=== PATIENT | male | born 1960 | race Caucasian/White ===

== ENCOUNTER 2017-11-20 19:36 | Inpatient (IN) | payer BC, SELFPAY ==
[2017-11-20 19:38] VITALS: BP 133/95; PULSE 114; RESP 18; TEMP 36.2; O2SAT 95; BMI 32.4
--- NOTE | 2017-11-20 20:03 | US_ITS ---
STUDY: VENOUS DOPPLER ULTRASOUND - BILATERAL LOWER EXTREMITIES REASON FOR EXAM: Male, 57 years old. Left-sided posterior leg pain for 10 days TECHNIQUE: Ultrasound evaluation of the deep vein system to include ghosh-scale imaging and compression was performed. Ghosh-scale imaging and Doppler sonographic evaluation, including duplex spectral analysis and qualitative color flow sonography, was performed. COMPARISON: None. FINDINGS: RIGHT LEG Common Femoral Vein: Normal compression, spontaneity and augmentation. Normal color Doppler. Common Femoral Vein/Greater Saphenous Junction: Normal compression, spontaneity and augmentation. Normal color Doppler. Deep Femoral Vein: Normal compression, spontaneity and augmentation. Normal color Doppler. Femoral Proximal: Normal compression, spontaneity and augmentation. Normal color Doppler. Femoral Middle: Normal compression, spontaneity and augmentation. Normal color Doppler. Femoral Distal: Normal compression, spontaneity and augmentation. Normal color Doppler. Popliteal Vein: Normal compression, spontaneity and augmentation. Normal color Doppler. Posterior Tibial Vein: Normal compression, spontaneity and augmentation. Normal color Doppler. Peroneal Vein: Normal compression, spontaneity and augmentation. Normal color Doppler. LEFT LEG Deep venous thrombosis in the left lower extremity noted extending from proximal femoral vein to distal peroneal vein. US/Venous Duplex Imag/True Extrem IMPRESSION: Deep venous thrombosis in the left lower extremity extending from proximal femoral vein to distal peroneal vein. Electronically Signed: Yasir Carter, at 21:16 EDT Tel , Service support ,
[2017-11-20] MEDS: Enoxaparin 100 MG/ML Syringe SC (21:20)
[2017-11-20 21:31] LABS: Absolute Lymphocyte Count 1.41 X10^3/ul (0.83-4.51); Absolute Neutrophil Count 4.3 X10^3/uL (2.0-7.7); Basophil# 0.02 X10^3/uL; Basophil% 0.3 % (0-1); Eosinophil# 0.86 X10^3/uL; Eosinophils% 11.8 % (0-5); Hematocrit 43.5 % (40-54); Hemoglobin 14.3 g/dl (13.0-16.5); Lymphocyte # 1.41 X10^3/ul (4.0); Lymphocyte % 19.3 % (19-41); Mean Corp Hgb Conc 32.9 g/gl (32-36); Mean Corpuscular Hgb 29.9 pg (27.0-32.0); Mean Platelet Vol. 8.8 fl (6.2-12.0); Monocyte# 0.68 X10^3/uL; Monocyte% 9.3 % (0-10); Neutrophil # 4.32 X10^3/uL (2.7-7.7); Platelet Count 188 K/mm3 (150-450); RBC Distribution Width SD 42.9 fl (35.1-43.9); Red Blood Count 4.78 M/mm3 (4.6-6.2); White Blood Count 7.3 K/mm3 (4.4-11.0)
[2017-11-20 21:33] LABS: International Normalized Ratio 1.1; POSITIVE COUNT NO; POSITIVE DIFFERENTIAL NO; POSITIVE MORPHOLOGY NO; Partial Thromboplast Time 30.5 Seconds (24.1-36.2); Prothrombin Time (Protime)PT. 14.3 SECONDS (11.7-14.9)
[2017-11-20 21:36] LABS: Anion Gap 6 (5-15); BUN 13 mg/dL (7-18); Calcium,Total 8.6 mg/dL (8.5-10.1); Chloride 109 mmol/L (98-107); Creatinine, Serum 0.87 mg/dL (0.70-1.30); EST Glomerular Filtration Rate 96 mL/min (>60); Est Glom Filt Rate - Afr Amer 116 mL/min (>60); Glucose 97 mg/dL (74-106); Potassium 3.6 mmol/L (3.5-5.1); Sodium Level 140 mmol/L (136-145)
--- NOTE | 2017-11-20 21:53 | CT_ITS ---
STUDY: CTA CHEST REASON FOR EXAM: Male, 57 years old. Left leg swelling. Possible DVT RADIATION DOSAGE (If Supplied By Facility): CTDIvol = ( 19.14 ) mGy, DLP = ( 703.80 ) mGycm TECHNIQUE: The examination was performed with the intravenous administration of 100 ml of Isovue 370 contrast material. Post-processing of the angiographic images was performed, with multiplanar reformation and 3D reconstruction. Individualized dose optimization techniques were used for this CT. COMPARISON: None. FINDINGS: : TRACHEA, THYROID, ESOPHAGUS: No tracheomalacia,stricture or wall thickening. Thyroid and esophagus are normal CARDIOVASCULAR SYSTEM:The thoracic aorta is normal with no aneurysm, dissection or developmental anomalies. There are large by in the distal ends of both the left and right pulmonary arteries and their lobar and segmental branches. The findings are slightly more impressive on the right side than the left side. The pulmonary trunk is clear. The heart is normal in size and there is no right ventricular strain. ROWAN AND LYMPH NODES: No hilar masses and no mediastinal, hilar, axillary or supraclavicular adenopathy LUNGS, LOW-ATTENUATION: No traction bronchiectasis, honeycombing,emphysema, lung cysts or cavitations LUNGS, HIGH ATTENUATION: No nodules/masses, ground glass opacities/consolidations or increased interstitial markings LUNGS, MOSAIC/CRAZY PAVING: Not evident PLEURA AND CHEST WALL: No plural effusions, pneumothoraces,rib fractures or any osteolytic/osteoblastic changes . The soft tissue chest wall including the breasts are normal UPPER ABDOMEN: A large hiatal hernia. CT/CTA Chest W/WO Contrast IMPRESSION: The thoracic aorta is normal. Large filling defects in the distal ends of both left and right pulmonary arteries and their lobar and segmental branches. The findings are more impressive on the right side than the left side and consistent with pulmonary embolism Electronically Signed: George Cross, at 22:37 EDT Tel , Service support ,
--- NOTE | 2017-11-20 23:29 | EKG12_ITS ---
Test Reason : LOWER EXTREMITY PAIN Blood Pressure : / mmHG Vent. Rate : 087 BPM Atrial Rate : 087 BPM P-R Int : 136 ms QRS Dur : 090 ms QT Int : 384 ms P-R-T Axes : 012 -01 008 degrees QTc Int : 462 ms Normal sinus rhythm Normal ECG Confirmed by ALLEN QUINN ([id number]), purchase request editor MANISHA THOMPSON ([id number]) on 11/24/2017 3:57:15 PM Referred By: ELKIN Confirmed By:ALLEN QUINN
[2017-11-20 23:37] VITALS: BP 145/90; PULSE 86; RESP 14; O2SAT 96
[2017-11-20 23:40] VITALS: BP 145/90; PULSE 88; RESP 14; O2SAT 96
--- NOTE | 2017-11-20 23:47 | HP.PCM_ITS ---
Problem List (1) Bilateral lobar and segmental PE Status: Acute (2) Left lower extremity DVT Status: Acute (3) Hypertension Status: Chronic (4) Dyslipidemia Status: Chronic (5) GERD (gastroesophageal reflux disease) Status: Chronic (6) Obesity grade 3 Status: Chronic History of Present Illness Date of Admission: 11/20/17 Chief Complaint: Left lower extremity swelling and shortness of breath for 10 days The patient is a 57 year old M with past medical history as mentioned above came to ER with progressive worsening of left lower extremity for 10 days along with shortness of breath on exertion for last 7 days. His left leg is started swelling and painful, progressed from distal left leg to posterior left thigh. He has dyspnea on exertion even on walking 10 steps. He does sedentary job. Denies personal or family history of PE, DVT past. He had cardiac cath probably in [facility] about a year ago for chest pain and was negative as per the patient and probably had echo also. In ER, venous Doppler shows diffuse DVT left lower extremity extending from proximal femoral vein to distal peroneal vein. He had CT angiogram of chest which shows large filling defects in the distal ends of both left and right pulmonary arteries and their lobar and segmental branches; findings more impressive on the right side, consistent with bilateral PE. [] Past Medical History Past Medical History (Chronic Problems): Chronic Problems Hypertension (Chronic) Dyslipidemia (Chronic) GERD (gastroesophageal reflux disease) (Chronic) Obesity grade 3 (Chronic) Allergies No Known Allergies Allergy (Verified 11/20/17 19:37) Home Medications: Ambulatory Orders Medication Instructions Recorded Aspirin [Aspirin, Baby] 81 mg PO DAILY@0800 11/20/17 Losartan Potassium 50 mg PO DAILY 11/20/17 Metoprolol Tartrate [Lopressor 25 mg PO DAILY 11/20/17 (Beta [place])] Omeprazole 40 mg PO DAILY 11/20/17 Simvastatin [Zocor] 20 mg PO DAILY 11/20/17 Smoking Status: Never smoker Tobacco Use: Chew - *Family History Paternal History Items: No pertinent history - Positive family relative DVT/PE or hereditary hypercoagulable disorder Review of Systems Constitutional: Denies: Chills, Fever, Weight Change HEENT: Denies: Head Aches, Sinus Congestion, Sinus Drainage Cardiovascular: Denies: Chest Pain, Palpitations Respiratory: Reports: Cough - Chronic cough, Shortness of breath upon exertion. Denies: Shortness of breath at rest, Sputum production Gastrointestinal: Denies: Abdominal Pain, Nausea, Vomiting Genitourinary: Denies: Dysuria Musculoskeletal: Reports: Leg Pain, Muscle pain. Denies: Joint Pain, Joint Tenderness Skin: Denies: Rash, Wounds Neurological: Denies: Numbness, Tingling, Focal weakness Psychiatric: Denies: Anxiety, Depression, Homicidal Ideations, Suicidal Ideations Hematologic/ Lymphatic: Denies: Easy Bruising, Easy Bleeding VTE Information - Inpt Only VTE Present on Admission: Yes VTE Mechan Device Prophylaxis: None VTE Pharm Prophylaxis ordered?: No Reason prophylaxis not ordered:: Procedure Not Indicated - On therapeutic dose of Lovenox Patient Problems: Active and Suspected Problems Bilateral lobar and segmental PE (Acute) Left lower extremity DVT (Acute) - Physical Exam General: Alert, Oriented x3, Cooperative HEENT: Atraumatic, PERRLA, EOMI, Normocephalic Oral: Dry Mucosa Neck: Supple, No JVD, Negative Carotid Bruits Lungs: Clear to auscultation, Diminished - On bilateral lung bases Cardiovascular: Regular rate, Regular Rhythm, Normal S1, Normal S2, No murmurs Abdomen: Bowel Sounds Present, Soft, Non Tender, Non-Distended Extremities: Capillary Refill Less than 3 Seconds, Edema - Diffuse edema, tenderness and induration of left lower extremity over calf and thigh muscles. Skin: No rashes, No breakdown Musculoskeletal: Tenderness Neurological: Cranial nerves II-XII grossly intact, Neuro grossly intact Psych/Mental Status: Normal Affect, Appropriate Vital Signs Temp Pulse Resp BP Pulse Ox 97.1 F L 88 14 145/90 H 96 11/20/17 19:38 11/20/17 23:40 11/20/17 23:40 11/20/17 23:40 11/20/17 23:40 Oxygen Delivery Method Room Air Weight: 226 lb 3.108 oz Body Mass Index (BMI) 32.4 Laboratory Tests Past 24 Hrs 11/20/17 11/20/17 11/20/17 21:11 21:11 21:11 WBC 7.3 RBC 4.78 Hgb 14.3 Hct 43.5 MCV 91.0 MCH 29.9 MCHC 32.9 RDW 13.0 RDW Differential 42.9 Plt Count 188 MPV 8.8 Immature Gran % (Auto) 0.300 Neut % (Auto) 59.0 Lymph % (Auto) 19.3 Hand % (Auto) 9.3 Eos % (Auto) 11.8 H Baso % (Auto) 0.3 Absolute Neuts (auto) 4.3 Absolute Lymphs (auto) 1.41 Total Counted Not Reportable PT 14.3 INR 1.1 APTT 30.5 Sodium 140 Potassium 3.6 Chloride 109 H Carbon Dioxide 25.0 Anion Gap 6 BUN 13 Creatinine 0.87 Estim Creat Clear Calc 94.40 Est GFR (MDRD) Af Amer 116 Est GFR (MDRD) Non-Af 96 BUN/Creatinine Ratio 15.0 Glucose 97 Calcium 8.6 Assessment/Plan Active and Suspected Problems Bilateral lobar and segmental PE (Acute) Left lower extremity DVT (Acute) The patient is a 57 year old M with past medical history as mentioned above came to ER with progressive worsening of left lower extremity for 10 days along with shortness of breath on exertion for last 7 days. His left leg is started swelling and painful, progressed from distal left leg to posterior left thigh. He has dyspnea on exertion even on walking 10 steps. He does sedentary job. Denies personal or family history of PE, DVT past. He had cardiac cath probably in [facility] about a year ago for chest pain and was negative as per the patient and probably had echo also. In ER, venous Doppler shows diffuse DVT left lower extremity extending from proximal femoral vein to distal peroneal vein. He had CT angiogram of chest which shows large filling defects in the distal ends of both left and right pulmonary arteries and their lobar and segmental branches; findings more impressive on the right side, consistent with bilateral PE. 1. Acute distal ends of bilateral pulmonary artery and their lobar and segmental branches, right more than left pulmonary embolism and diffuse left lower extremity DVT; most probably provoked from sedentary job: The patient is being admitted in PCU. Started on Lovenox 1 mg/kg body weight every 12 hourly. IV fluid normal saline. Serial troponin enzymes, BNP and EKG ordered to look for right ventricular strain. 2D echo ordered. CBC and BMP tomorrow a.m. 2. Hypertension and dyslipidemia and grade 3 obesity: Continue home medication. Try to get medical record from [facility] for cardiac cath and echo report. 3. DVT prophylaxis: Already on therapeutic dose of Lovenox Laboratory Results 11/20/17 21:11: WBC 7.3, RBC 4.78, Hgb 14.3, Hct 43.5, MCV 91.0, MCH 29.9, MCHC 32.9, RDW 13.0, RDW Differential 42.9, Plt Count 188, MPV 8.8, Immature Gran % ( Auto) 0.300, Neut % (Auto) 59.0, Lymph % (Auto) 19.3, Hand % (Auto) 9.3, Eos % ( Auto) 11.8 H, Baso % (Auto) 0.3, Absolute Neuts (auto) 4.3, Absolute Lymphs ( auto) 1.41, Total Counted Not Reportable 11/20/17 21:11: PT 14.3, INR 1.1, APTT 30.5 11/20/17 21:11: Sodium 140, Potassium 3.6, Chloride 109 H, Carbon Dioxide 25.0, Anion Gap 6, BUN 13, Creatinine 0.87, Estim Creat Clear Calc 94.40, Est GFR ( MDRD) Af Amer 116, Est GFR (MDRD) Non-Af 96, BUN/Creatinine Ratio 15.0, Glucose 97, Calcium 8.6 Clinical Impression(s) from Imaging Studies Venous Duplex 11/20/17 20:03 IMPRESSION: Deep venous thrombosis in the left lower extremity extending from proximal femoral vein to distal peroneal vein. Chest CTA 11/20/17 21:53 IMPRESSION: The thoracic aorta is normal. Large filling defects in the distal ends of both left and right pulmonary arteries and their lobar and segmental branches. The findings are more impressive on the right side than the left side and consistent with pulmonary embolism Code Visit Inpatient E&M: 51214 Init Hosp L3
[2017-11-21] VITALS (11 sets, daily range): BP systolic 115–167; BP diastolic 66–98; PULSE 64–115; RESP 18; TEMP 37–37.4; O2SAT 92–98; BMI 31.0; BMI 31.1
--- NOTE | 2017-11-21 00:13 | ED.VISSUMM ---
- ER Visit Summary Date of Service: 11/21/17 Chief Complaint: Left leg pain History of Present Illness: The patient is a 57 M presents with left lower extremity pain that has been getting worse over the past few days. Patient states the pain started in his calf and has spread up to his posterior thigh. Patient denies any trauma or injury. Patient denies any paresthesias or weakness. Patient describes the pain as aching. Patient states nothing seems to make the pain better or worse. Patient denies any chest pain but does admit to some shortness of breath. Patient denies any nausea or vomiting. Patient denies any diaphoresis. Physical Examination: Vital signs are stable except for mild tachycardia of 114. Oral mucosa is pink and moist. Heart was regular and tachycardic. Lungs are clear and equal bilaterally. There is good respiratory effort noted. Abdomen is soft and nontender. Extremities are intact. There is some tenderness over the left calf and left posterior thigh. Pedal pulses are equal bilaterally. Cranial nerves II through XII are intact. There are no focal motor or sensory deficits noted. The remaining physical exam is within normal limits. Test Results: Venous duplex of the left lower extremity was obtained. There is DVT of the common femoral vein distally to the ankle. CBC and basic metabolic profile were obtained and were within normal limits. CT of the chest was obtained. There is bilateral pulmonary emboli noted. EKG shows a normal sinus rhythm with a rate of 87. There are no acute ST or T-wave changes noted. There are no prior EKGs available for comparison. Emergency Department Course and Treatment: Patient was given a dose of Lovenox here. Case was discussed with the hospitalist. He will admit the patient to his service to the intensive care unit. Patient understood and was agreeable with the plan. All questions were answered. Disposition: Admit to ICU Impression: Bilateral pulmonary emboli, DVT left lower extremity This note was generated with [employer] dictation software. It may contain incorrect words, spelling, and punctuation that were not noted in review of the chart prior to signing ED Disposition - Plan for ED Patient: Disposition: Acute Care Hospital [facility] Chief Complaint: Lower Extremity Injury Diagnosis: Bilateral pulmonary embolism, Deep vein thrombosis (DVT) of left lower extremity Referrals: NOT,DEFINED [Primary Care Provider] -
--- NOTE | 2017-11-21 00:21 | ED.DCSUM_ITS ---
- ER Visit Summary Date of Service: 11/21/17 Chief Complaint: Left leg pain History of Present Illness: The patient is a 57 M presents with left lower extremity pain that has been getting worse over the past few days. Patient states the pain started in his calf and has spread up to his posterior thigh. Patient denies any trauma or injury. Patient denies any paresthesias or weakness. Patient describes the pain as aching. Patient states nothing seems to make the pain better or worse. Patient denies any chest pain but does admit to some shortness of breath. Patient denies any nausea or vomiting. Patient denies any diaphoresis. Physical Examination: Vital signs are stable except for mild tachycardia of 114. Oral mucosa is pink and moist. Heart was regular and tachycardic. Lungs are clear and equal bilaterally. There is good respiratory effort noted. Abdomen is soft and nontender. Extremities are intact. There is some tenderness over the left calf and left posterior thigh. Pedal pulses are equal bilaterally. Cranial nerves II through XII are intact. There are no focal motor or sensory deficits noted. The remaining physical exam is within normal limits. Test Results: Venous duplex of the left lower extremity was obtained. There is DVT of the common femoral vein distally to the ankle. CBC and basic metabolic profile were obtained and were within normal limits. CT of the chest was obtained. There is bilateral pulmonary emboli noted. EKG shows a normal sinus rhythm with a rate of 87. There are no acute ST or T-wave changes noted. There are no prior EKGs available for comparison. Emergency Department Course and Treatment: Patient was given a dose of Lovenox here. Case was discussed with the hospitalist. He will admit the patient to his service to the intensive care unit. Patient understood and was agreeable with the plan. All questions were answered. Disposition: Admit to ICU Impression: Bilateral pulmonary emboli, DVT left lower extremity This note was generated with [employer] dictation software. It may contain incorrect words, spelling, and punctuation that were not noted in review of the chart prior to signing ED Disposition - Plan for ED Patient: Disposition: Acute Care Hospital [facility] Chief Complaint: Lower Extremity Injury Diagnosis: Bilateral pulmonary embolism, Deep vein thrombosis (DVT) of left lower extremity Referrals: NOT,DEFINED [Primary Care Provider] -
--- NOTE | 2017-11-21 00:24 | EKG12_ITS ---
Test Reason : AM EKG Blood Pressure : / mmHG Vent. Rate : 094 BPM Atrial Rate : 094 BPM P-R Int : 140 ms QRS Dur : 090 ms QT Int : 362 ms P-R-T Axes : 043 -02 000 degrees QTc Int : 452 ms Normal sinus rhythm Normal ECG No previous ECGs available Confirmed by NEEMA WEBSTER, TEODORO ([id number]), order editor MANISHA THOMPSON ([id number]) on 11/27/2017 3:48:14 PM Referred By: NOLAN Confirmed By:TEODORO BETHEA MD
[2017-11-21] MEDS: 0.9% Normal Saline 1,000 ML 100 ML IV (00:47)
[2017-11-21 01:05] LABS: BNP,B-Type NATRIURETIC PEPTIDE 41.2 pg/mL (0-100)
[2017-11-21 05:11] LABS: Hematocrit 40.6 % (40-54); Hemoglobin 13.7 g/dl (13.0-16.5); Mean Corp Hgb Conc 33.7 g/gl (32-36); Mean Corpuscular Hgb 30.6 pg (27.0-32.0); Mean Corpuscular Volume 90.6 fL (80-94); Mean Platelet Vol. 8.9 fl (6.2-12.0); Platelet Count 219 K/mm3 (150-450); RBC Distribution Width CV 12.9 % (11.6-14.6); RBC Distribution Width SD 42.2 fl (35.1-43.9); Red Blood Count 4.48 M/mm3 (4.6-6.2); Scan Indicated on CBC? Y/N NO; White Blood Count 6.7 K/mm3 (4.4-11.0)
[2017-11-21 05:31] LABS: AST(SGOT) 9 U/L (15-37); Alanine Aminotransfer ALT/SGPT 16 U/L (16-61); Albumin, Serum 2.7 g/dL (3.2-5.0); Alkaline Phosphatase 65 U/L (45-117); Anion Gap 9 (5-15); BUN 10 mg/dL (7-18); Bilirubin, Direct 0.12 mg/dL (0.00-0.30); Calcium,Total 8.1 mg/dL (8.5-10.1); Chloride 108 mmol/L (98-107); Cholesterol 92 mg/dL (200); Creatinine, Serum 0.67 mg/dL (0.70-1.30); EST Glomerular Filtration Rate 130 mL/min (>60); Est Glom Filt Rate - Afr Amer 157 mL/min (>60); Estimated Creatinine Clearance 122.57 ml/min; Globulin 3.6 g/dL (2.2-4.2); Glucose 92 mg/dL (74-106); High Density Lipoprotein 30 mg/dL; Potassium 3.3 mmol/L (3.5-5.1); Protein, Total 6.3 g/dL (6.4-8.2); Sodium Level 142 mmol/L (136-145); Triglycerides 83 mg/dL; Very Low Density Lipoprotein 17 mg/dL (5-40)
--- NOTE | 2017-11-21 05:55 | ECHOD_ITS ---
Reason For Study: embolism Procedure This was a 2D Doppler, Color Flow transthoracic echocardiogram. The study was technically difficult. Due to body habitus. Exam performed portable in patient room. Left Ventricle Normal size and thickness. The estimated ejection fraction is 75 %. Normal diastology for age. No regional wall motion abnormalities noted. Right Ventricle Mildly dilated right ventricle. The right ventricular wall motion is normal. Cannot exclude apical RV strain. Atria The left atrium is moderately enlarged. Normal right atrium. Normal atrial septum. Mitral Valve The mitral valve is structurally normal. No prolapse or stenosis seen. Tricuspid Valve Normal tricuspid valve. Trivial tricuspid valve insufficiency. Right ventricular systolic pressure estimated to be 61 mmHg. Severe pulmonary hypertension. Aortic Valve Trisinus/trileaflet aortic valve. Normal aortic valve. Pulmonic Valve Normal pulmonic valve. Great Vessels Normal aortic root. Normal arch. Pericardium/Pleural No pericardial effusion. MMode/2D Measurements & Calculations LVIDd: 4.8 cm IVSd: 1.0 cm Ao root diam: 3.2 cm LVIDs: 3.0 cm LVPWd: 1.0 cm LA dimension: 3.1 cm RVDd: 3.7 cm FS: 36.7 % LAV(MOD-bp): 83.3 ml LA A4 area: 25.9 cm2 RA A4 area: 18.5 cm2 LAV(MOD-bp) Indexed: 37.9 ml/m2 LAV(MOD-sp2): 70.8 ml LAV(MOD-sp4): 86.8 ml Doppler Measurements & Calculations MV E max arturo: 90.0 cm/sec Lat Peak E' Arturo: 12.9 cm/sec Med Peak E' Arturo: 10.1 cm/sec MV A max arturo: 75.3 cm/sec E/E' lat: 7.0 E/E' med: 8.9 MV E/A: 1.2 Ao V2 max: 153.9 cm/sec LV V1 max: 127.3 cm/sec PA V2 max: 100.8 cm/sec Ao max P.5 mmHg LV V1 max P.5 mmHg TR max arturo: 371.2 cm/sec TR max P.1 mmHg Interpretation Summary The estimated ejection fraction is 75 %. Normal diastology for age. Mildly dilated right ventricle. Cannot exclude apical RV strain. The left atrium is moderately enlarged. Trivial tricuspid valve insufficiency. Right ventricular systolic pressure estimated to be 61 mmHg. Moderate to severe pulmonary hypertension. Ordering Physician: Maged Shrestha Performed By: Cherry Cody RDCS, RVT
[2017-11-21] MEDS: Enoxaparin 100 MG/ML Syringe SC (08:44)
[2017-11-21] MEDS: Aspirin 81 MG TAB.CHEW PO (08:44)
[2017-11-21] MEDS: Losartan Potassium 50 MG Tablet PO (09:34)
[2017-11-21] MEDS: Metoprolol Tartrate 25 MG Tablet PO (09:34)
[2017-11-21] MEDS: BENZOCAINE/MENTHOL 1 LOZENGE MUCOUS MEM (09:50)
[2017-11-21] MEDS: Pantoprazole Sodium 40 MG Tablet PO (09:50)
[2017-11-21] MEDS: guaiFENesin 1,200 MG Tablet 1200 MG PO (09:50)
--- NOTE | 2017-11-21 10:53 | CASEMGMT ---
Addendum entered by Antonio Esteban 11/21/17 11:25: Call to [facility], cost for prescriptions is $30. Britni SANFORD CM Original Note: DC PLAN: [facility]UVENAL MCNALLY face to face interview. Pt is from out of town. 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 Prefers [facility] pharmacy in [place] for any prescriptions. Plan is to dc on Xarelto. JUVENAL MCNALLY can check pricing once prescription has been sent to be filled. Denies use of DME. Discussed f/u with [facility] on discharge. PT does not have local PCP. Maribell HERNANDEZN RN ACM
--- NOTE | 2017-11-21 10:57 | DCINST_ITS ---
- Discharge Diagnoses Current Active Problems: Current Active and Chronic Problems Bilateral lobar and segmental PE (Acute) Left lower extremity DVT (Acute) Hypertension (Chronic) Dyslipidemia (Chronic) GERD (gastroesophageal reflux disease) (Chronic) Obesity grade 3 (Chronic) Bilateral pulmonary embolism (Acute) Deep vein thrombosis (DVT) of left lower extremity (Acute) You will use the following diet at home:: Cardiac Discharge Activity: Return to Normal Activity Call your doctor if you observe: Shortness of breath, Dizziness, Fainting spells , Chest pain, Increased palpitations (irregular heartbeat) Additional Instructions: You were started on Xarelto for blood clots. You will take Xarelto 15mg twice daily for 21 days. At 22 days you will begin taking xarelto 20 mg once daily. This will be further prescribed by your primary care provider at follow up. Allergies/Adverse Reactions: Allergies No Known Allergies Allergy (Verified 11/20/17 19:37) Medications to take at Discharge Aspirin [Aspirin, Baby] 81 mg PO DAILY@0800 11/20/17 Losartan Potassium 50 mg PO DAILY 11/20/17 Metoprolol Tartrate [Lopressor (Beta [place])] 25 mg PO DAILY 11/20/17 Omeprazole 40 mg PO DAILY 11/20/17 Simvastatin [Zocor] 20 mg PO DAILY 11/20/17 Rivaroxaban [Xarelto] 15 mg PO BID #42 tab 11/21/17 The following prescriptions were given: Rivaroxaban [Xarelto] 15 mg PO BID #42 tab Primary Care Physician: NOT,DEFINED [Primary Care Provider] - Please follow up with your Primary Care Physician in: 1 Week Proposed Discharge Date: 11/21/17
--- NOTE | 2017-11-21 11:28 | PCM.DC.SUM ---
Discharge Date and Diagnosis Date of Admission: 11/20/17 Date of Discharge: 11/21/17 - Primary Discharge Diagnosis Active and Suspected Problems 1. Acute DVT/PE 2. Mild tachycardia-secondary to #1. 3. Hypokalemia - Secondary Discharge Diagnosis Chronic Problems Hypertension (Chronic) Dyslipidemia (Chronic) GERD (gastroesophageal reflux disease) (Chronic) Obesity grade 3 (Chronic) Hospital Course and Treatment Imaging Results: Diagnostic Data Venous Duplex 11/20/17 20:03 IMPRESSION: Deep venous thrombosis in the left lower extremity extending from proximal femoral vein to distal peroneal vein. Electronically Signed: Yasir Carter, at 21:16 EDT Tel , Service support , Chest CTA 11/20/17 21:53 IMPRESSION: The thoracic aorta is normal. Large filling defects in the distal ends of both left and right pulmonary arteries and their lobar and segmental branches. The findings are more impressive on the right side than the left side and consistent with pulmonary embolism Electronically Signed: George Cross, at 22:37 EDT Tel , Service support , Operations: None Procedures: 2-D Echocardiogram Summary of Care Provided: The patient is a 57 year old M admitted 11/20/17 due to left lower extremity swelling and shortness of breath. He has a past medical history of hypertension, hyperlipidemia, obesity. Patient was found to have acute pulmonary embolism and DVT. He denies personal or family history of blood clot. Patient has a very sedentary job requiring long travel. Venous duplex ultrasound showed DVT in the left lower extremity extending from the proximal femoral vein to distal peroneal vein. Chest CTA showed large filling defects in the distal ends of both left and right pulmonary arteries and their lobar and segmental branches. Findings were more impressive on the right side than the left side and consistent with pulmonary embolism. Troponin negative ?3. Echocardiogram showed an EF of 75%, mildly dilated right ventricle, RVSP estimated to be 61 mmHg. Patient has mild tachycardia related to acute PE. He will continue home beta-florence regimen. Mild hypokalemia replaced orally. Patient received weight-based Lovenox subcu during admission. He will be discharged on Xarelto 15 mg twice daily for 21 days. At 22 days, patient will begin Xarelto 20 mg once daily. Patient is from [place] and currently residing in the area for work purposes. He was given list of primary care physicians in which to establish within 1 week. PCP will prescribe Xarelto 22 days and after to avoid confusion with dosing. Patient seen and examined prior to discharge. Heart rate with mild tachycardia, regular rhythm, no murmur. Lungs clear, diminished. Abdomen soft, nontender, obese. Neuro grossly intact. Vital signs stable. Patient is stable for discharge home with further follow-up as recommended above. This patient was seen by RODERICK Yeh under the supervision of Dr. Deleon. Discharge Diet: Low fat/ Low Cholesterol Discharge Activity: Return to Normal Activity Call your doctor if you observe: Shortness of breath, Dizziness, Fainting spells, Chest pain, Increased palpitations (irregular heartbeat) Home Medications: Medications to take at Discharge Losartan Potassium 50 mg PO DAILY 11/20/17 Metoprolol Tartrate [Lopressor (Beta [place])] 25 mg PO DAILY 11/20/17 Omeprazole 40 mg PO DAILY 11/20/17 Simvastatin [Zocor] 20 mg PO DAILY 11/20/17 Rivaroxaban [Xarelto] 15 mg PO BID #42 tab 11/21/17 Following Prescrptions Were Given to Patient: Rivaroxaban [Xarelto] 15 mg PO BID #42 tab Primary Care Physician: NOT,DEFINED [Primary Care Provider] - Please follow up with your Primary Care Physician in: 1 Week Disposition: Home Minutes spent on discharge:: 35 Patient Condition:: Stable Medical Necessity - Tobacco Use Smoking Status: Never smoker Tobacco Use: Chew Meaningful Use Info Meaningful Use Diagnoses (Choose all that apply): None applicable
--- NOTE | 2017-11-21 11:41 | DS.PCM_ITS ---
Discharge Date and Diagnosis Date of Admission: 11/20/17 Date of Discharge: 11/21/17 - Primary Discharge Diagnosis Active and Suspected Problems 1. Acute DVT/PE 2. Mild tachycardia-secondary to #1. 3. Hypokalemia - Secondary Discharge Diagnosis Chronic Problems Hypertension (Chronic) Dyslipidemia (Chronic) GERD (gastroesophageal reflux disease) (Chronic) Obesity grade 3 (Chronic) Hospital Course and Treatment Imaging Results: Diagnostic Data Venous Duplex 11/20/17 20:03 IMPRESSION: Deep venous thrombosis in the left lower extremity extending from proximal femoral vein to distal peroneal vein. Electronically Signed: Yasir Carter, at 21:16 EDT Tel , Service support , Chest CTA 11/20/17 21:53 IMPRESSION: The thoracic aorta is normal. Large filling defects in the distal ends of both left and right pulmonary arteries and their lobar and segmental branches. The findings are more impressive on the right side than the left side and consistent with pulmonary embolism Electronically Signed: George Cross, at 22:37 EDT Tel , Service support , Operations: None Procedures: 2-D Echocardiogram Summary of Care Provided: The patient is a 57 year old M admitted 11/20/17 due to left lower extremity swelling and shortness of breath. He has a past medical history of hypertension , hyperlipidemia, obesity. Patient was found to have acute pulmonary embolism and DVT. He denies personal or family history of blood clot. Patient has a very sedentary job requiring long travel. Venous duplex ultrasound showed DVT in the left lower extremity extending from the proximal femoral vein to distal peroneal vein. Chest CTA showed large filling defects in the distal ends of both left and right pulmonary arteries and their lobar and segmental branches. Findings were more impressive on the right side than the left side and consistent with pulmonary embolism. Troponin negative ?3. Echocardiogram showed an EF of 75%, mildly dilated right ventricle, RVSP estimated to be 61 mmHg. Patient has mild tachycardia related to acute PE. He will continue home beta-florence regimen. Mild hypokalemia replaced orally. Patient received weight -based Lovenox subcu during admission. He will be discharged on Xarelto 15 mg twice daily for 21 days. At 22 days, patient will begin Xarelto 20 mg once daily. Patient is from [place] and currently residing in the area for work purposes. He was given list of primary care physicians in which to establish within 1 week. PCP will prescribe Xarelto 22 days and after to avoid confusion with dosing. Patient seen and examined prior to discharge. Heart rate with mild tachycardia , regular rhythm, no murmur. Lungs clear, diminished. Abdomen soft, nontender , obese. Neuro grossly intact. Vital signs stable. Patient is stable for discharge home with further follow-up as recommended above. This patient was seen by RODERICK Yeh under the supervision of Dr. Deleon. Discharge Diet: Low fat/ Low Cholesterol Discharge Activity: Return to Normal Activity Call your doctor if you observe: Shortness of breath, Dizziness, Fainting spells , Chest pain, Increased palpitations (irregular heartbeat) Home Medications: Medications to take at Discharge Losartan Potassium 50 mg PO DAILY 11/20/17 Metoprolol Tartrate [Lopressor (Beta [place])] 25 mg PO DAILY 11/20/17 Omeprazole 40 mg PO DAILY 11/20/17 Simvastatin [Zocor] 20 mg PO DAILY 11/20/17 Rivaroxaban [Xarelto] 15 mg PO BID #42 tab 11/21/17 Following Prescrptions Were Given to Patient: Rivaroxaban [Xarelto] 15 mg PO BID #42 tab Primary Care Physician: NOT,DEFINED [Primary Care Provider] - Please follow up with your Primary Care Physician in: 1 Week Disposition: Home Minutes spent on discharge:: 35 Patient Condition:: Stable Medical Necessity - Tobacco Use Smoking Status: Never smoker Tobacco Use: Chew Meaningful Use Info Meaningful Use Diagnoses (Choose all that apply): None applicable
[2017-11-21] MEDS: oxyCODONE 5 MG Tablet PO (14:25)
== END 2017-11-21 15:23 | disposition home or self-care (01) | DRG 299 ==
LOC: ED 20:17 → PCU 11-21 00:11
PROVIDERS: Admitting Provider Internal Medicine; Emergency Provider Emergency Medicine; Visit Provider Family Medicine
DX: I82.412 Acute embolism and thrombosis of left femoral vein (principal); I26.99 Other pulmonary embolism without acute cor pulmonale; K21.9 Gastro-esophageal reflux disease without esophagitis; E78.5 Hyperlipidemia, unspecified; I10 Essential (primary) hypertension; E66.9 Obesity, unspecified; Z68.31 Body mass index [BMI] 31.0-31.9, adult; Z71.3 Dietary counseling and surveillance; F17.220 Nicotine dependence, chewing tobacco, uncomplicated; E87.6 Hypokalemia
CPT/HCPCS: 36415; 71275; 80048; 80061; 80076; 83880; 84484; 85025; 85027; 85610; 85730; 93005; 93306; 93970; 99283; J7030; Q9957; Q9967; A4216